=== PATIENT | female | born 2000 | race Two or more races ===

== ENCOUNTER 2025-08-13 13:05 | Observation (INO) | payer MEDICAID ==
--- NOTE | 2025-08-13 14:03 | DVH ---
BIOPHYSICAL PROFILE HISTORY: IUGR Comparison Study: None TECHNIQUE: Multiple real-time grayscale sonographic images through the gravid uterus of the fetus with duplex Doppler color flow and M-mode spectral analysis FINDINGS: BIOPHYSICAL PROFILE: breathing score: 2 movement score: 2 tone score: 2 Quantitative MICHELLE score: 2 (MICHELLE: 20.8 Cm.) Total score: 8/8 The cervix is unremarkable Single live fetus in cephalic presentation. heart rate 142 beats per minute. Anterior placenta without previa or abruption IMPRESSION: Biophysical profile score: 8/8
[2025-08-13] MEDS ORDERED: PREN1TAB71 OR (14:35)
--- NOTE | 2025-08-13 14:55 | DVHDS2 ---
Physician Discharge Progress N Final Diagnosis: sga r/o iugr 36wks Operations or Procedures: Operations or Procedures nst reactive reviwed,sono Condition on Discharge: Good Disposition: Home Discharge Instructions: Diet: Regular Activity: No Restrictions, As Tolerated Medications: na Follow Up Care: Specialist: 3d Discharge Statement: "Patient was advised to return to the ER or call 911 if any headaches, dizziness, shortness of breath, chest pain, abdominal pain, bleeding, fevers, or worsening of medical condition. Patient was counseled about treatment plan, medications, possible side effects, patientverbalized understanding. All questions were answered to the best of my ability. This discharge took greater then 30 minutes in planning, reviewing d ocumentation, counseling the patient, and discussing with other team members." Visit Coding OBGYN Date of Service: Aug 13, 2025 Billing Provider: KEO DAS DO THERMOSTAT MECHANIC Common Visit Codes: [id number] OBS CARE (HIGH) THERMOSTAT MECHANIC Procedure Codes: 32497-73- NON-STRESS TEST KEO DAS DO Aug 13, 2025 14:54
== END 2025-08-13 15:00 | disposition home or self-care (01) ==
LOC: UNDOADMOB 13:05 → EDBD 13:05 → LDRP 13:05 → UNDODISOB 15:00
PROVIDERS: ADMIT Obstetrics & Gynecology; ATTEND Obstetrics & Gynecology
DX: O36.5930 Maternal care for other known or suspected poor fetal growth, third trimester, not applicable or unspecified (principal); Z3A.36 36 weeks gestation of pregnancy; Z98.890 Other specified postprocedural states
CPT/HCPCS: 59025; 76819; 81002; A4649; G0378

== ENCOUNTER 2025-08-16 12:58 | Observation (INO) | payer MEDICAID ==
[~2025-08-16 12:58] MED LIST: PREN1TAB71 OR
--- NOTE | 2025-08-16 14:57 | DVH ---
BIOPHYSICAL PROFILE HISTORY: IUGR TECHNIQUE: Multiple transabdominal real-time grayscale sonographic images through the gravid uterus of the fetus with duplex Doppler color flow and M-mode spectral analysis FINDINGS: BIOPHYSICAL PROFILE: breathing score: 2/2 movement score: 2/2 tone score: 2/2 Quantitative MICHELLE score: 2/2 (MICHELLE: 18.8 Cm.) Total score: 8/8 The cervix closed Single live fetus in cephalic presentation. heart rate 142 beats per minute. Grade 1 anterior placenta without previa or abruption IMPRESSION: 1. Biophysical profile score: 8/8
--- NOTE | 2025-08-17 05:41 | DVHDS2 ---
Physician Discharge Progress N Final Diagnosis: iugr 36wks Operations or Procedures: Operations or Procedures nst reactive reviwed,sono Condition on Discharge: Good Disposition: Home Discharge Instructions: Diet: Regular Activity: No Restrictions, As Tolerated Medications: na Follow Up Care: Specialist: 3d Discharge Statement: "Patient was advised to return to the ER or call 911 if any headaches, dizziness, shortness of breath, chest pain, abdominal pain, bleeding, fevers, or worsening of medical condition. Patient was counseled about treatment plan, medications, possible side effects, patientverbalized understanding. All questions were answered to the best of my ability. This discharge took greater then 30 minutes in planning, reviewing documenta tion, counseling the patient, and discussing with other team members." Visit Coding OBGYN Date of Service: Aug 16, 2025 Billing Provider: KEO DAS DO DIETARY AIDE TEACHER Common Visit Codes: [id number] INP/OBS CARE (HIGH) DIETARY AIDE TEACHER Procedure Codes: 07052-67- NON-STRESS TEST KEO DAS DO Aug 17, 2025 05:41
== END 2025-08-16 14:57 | disposition home or self-care (01) ==
LOC: LDRP 12:58
PROVIDERS: ADMIT Obstetrics & Gynecology; ATTEND Obstetrics & Gynecology
DX: O36.5930 Maternal care for other known or suspected poor fetal growth, third trimester, not applicable or unspecified (principal); Z3A.36 36 weeks gestation of pregnancy; Z98.890 Other specified postprocedural states
CPT/HCPCS: 59025; 76819; 81002; A4649; G0378

== ENCOUNTER 2025-08-18 11:35 | Observation (INO) | payer MEDICAID ==
--- NOTE | 2025-08-18 12:53 | DVH ---
OB ULTRASOUND, LIMITED CLINICAL INDICATION: Decreased FM TECHNIQUE: Multiple grayscale ultrasound and M-mode images were obtained of the pelvis for evaluation of intrauterine . COMPARISON: US BIOPHYSICAL PROFILE on DOS: 08/16/25, US BIOPHYSICAL PROFILE on DOS: 08/13/25 FINDINGS: A single living fetus is seen in cephalic presentation. Biophysical profile: 03/29 breathin movements: 2 tone: 2 Amniotic fluid volume: 2 Placenta: Anterior. Amniotic fluid: Visibly normal. MICHELLE 15 cm heart rate: 140 beats/min. A complete anatomic survey was not performed on this exam. Particulate debris in the amniotic fluid. IMPRESSION: 1. Biophysical profile: 03/29
--- NOTE | 2025-08-19 08:07 | DVHDS2 ---
Physician Discharge Progress N Final Diagnosis: jul [id number] Operations or Procedures: Operations or Procedures nst reactive reviwed,sono Condition on Discharge: Good Disposition: Home Discharge Instructions: Diet: Regular Activity: No Restrictions, As Tolerated Follow Up/Referral: Return to [facility] tomorrow as scheduled for monitoring at 11:00 am Medications: na Follow Up Care: Specialist: 2d Discharge Statement: "Patient was advised to return to the ER or call 911 if any headaches, dizziness, shortness of breath, chest pain, abdominal pain, bleeding, fevers, or worsening of medical condition. Patient was counseled about treatment plan, medications, possible side effects, patientverbalized understanding. All questions were answered to the best of my ability. This discharge took greater then 30 minutes in planning, reviewing docum entation, counseling the patient, and discussing with other team members." Visit Coding OBGYN Date of Service: Aug 18, 2025 Billing Provider: KEO DAS DO PHILOSOPHY PROFESSOR Common Visit Codes: [id number] OBS CARE (HIGH) PHILOSOPHY PROFESSOR Procedure Codes: 49930-96- NON-STRESS TEST KEO DAS DO Aug 19, 2025 08:07
== END 2025-08-18 13:12 | disposition home or self-care (01) ==
LOC: LDRP 11:35
PROVIDERS: ADMIT Obstetrics & Gynecology; ATTEND Obstetrics & Gynecology
DX: O36.8130 Decreased fetal movements, third trimester, not applicable or unspecified (principal); Z3A.36 36 weeks gestation of pregnancy; Z98.890 Other specified postprocedural states
CPT/HCPCS: 59025; 76819; 81002; 94760; A4649; G0378

== ENCOUNTER 2025-08-19 11:33 | Observation (INO) | payer MEDICAID ==
[~2025-08-19] VITALS: Ht 157.5 cm; Wt 52.6 kg
--- NOTE | 2025-08-19 14:17 | DVHDS2 ---
Physician Discharge Progress N Final Diagnosis: iup at37 wks sga Operations or Procedures: Operations or Procedures nst reactive reviwed,sono Condition on Discharge: Good Disposition: Home Discharge Instructions: Diet: Regular Activity: Light activity Medications: na Follow Up Care: Specialist: 2d Discharge Statement: "Patient was advised to return to the ER or call 911 if any headaches, dizziness, shortness of breath, chest pain, abdominal pain, bleeding, fevers, or worsening of medical condition. Patient was counseled about treatment plan, medications, possible side effects, patientverbalized understanding. All questions were answered to the best of my ability. This discharge took greater then 30 minutes in planning, reviewing documentation, counseling the patient, and discussing with other team members." Visit Coding OBGYN Date of Service: Aug 19, 2025 Billing Provider: KEO DAS DO [employer] COMMUNICATIONS SERGEANT Common Visit Codes: [id number] OBS CARE (HIGH) [employer] COMMUNICATIONS SERGEANT Procedure Codes: 29990-11- NON-STRESS TEST KEO DAS DO Aug 19, 2025 14:17
== END 2025-08-19 13:34 | disposition home or self-care (01) ==
LOC: UNDOADMOB 11:33 → LDRP 11:33 → UNDODISOB 13:34
PROVIDERS: ADMIT Obstetrics & Gynecology; ATTEND Obstetrics & Gynecology
DX: O36.5930 Maternal care for other known or suspected poor fetal growth, third trimester, not applicable or unspecified (principal); Z3A.37 37 weeks gestation of pregnancy; Z98.890 Other specified postprocedural states
CPT/HCPCS: 59025; 81002; 94760; A4649; G0378